=== PATIENT | male | born 1990 | race Caucasian/White ===

== ENCOUNTER → 2024-01-11 14:38 | Outpatient (REF) | payer OTHER, SELFPAY | LOC: HWRAD 14:38 | PROVIDERS: ATTENDING PHYSICIAN Family Medicine | DX: N28.1 Cyst of kidney, acquired (principal); R05.9 Cough, unspecified | CPT/HCPCS: 71046; 76700 ==

== ENCOUNTER → 2024-01-19 14:54 | Outpatient (REF) | payer OTHER, SELFPAY | LOC: HWRAD 14:54 | PROVIDERS: ATTENDING PHYSICIAN Family Medicine | DX: N28.1 Cyst of kidney, acquired (principal) | CPT/HCPCS: 74177; Q9967 ==

== ENCOUNTER → 2024-11-07 13:31 | Outpatient (REF) | payer BC, SELFPAY | LOC: DHSLP 13:31 | PROVIDERS: ATTENDING PHYSICIAN Family Medicine | DX: G47.30 Sleep apnea, unspecified (principal); R06.83 Snoring | CPT/HCPCS: 95800 ==

== ENCOUNTER → 2025-01-04 14:43 | Outpatient (REF) | payer BC, SELFPAY | LOC: HWRAD 14:43 | PROVIDERS: ATTENDING PHYSICIAN Family Medicine | DX: N28.1 Cyst of kidney, acquired (principal); R16.1 Splenomegaly, not elsewhere classified | CPT/HCPCS: 76700 ==